=== PATIENT | female | born 1975 | race American Indian/Alaskan Native ===

== ENCOUNTER 2018-06-20 11:36 | Emergency (ER) | payer MEDICAID, MEDICARE ==
[2018-06-20 11:42] VITALS: BP 123/72
--- NOTE | 2018-06-20 12:09 | Emergency Department Report ---
ED Upper Extremity Inj HPI - General Chief Complaint: Extremity Injury, Upper Stated Complaint: RIGHT FINGER INJURY Time Seen by Provider: 06/20/18 11:55 Source: patient Mode of arrival: Ambulatory Limitations: No Limitations - History of Present Illness Initial Comments: Patient is 42 years old female with no significant past medical history. Patient presented to the ER complaining of right middle finger pain and swelling for the last 2 days. Patient denied any fever, injury, nausea or vomiting. MD Complaint: Injury to:: right, hand - Related Data Home Medications Medication Instructions Recorded Confirmed Last Taken Quetiapine Fumarate [Seroquel XR] 800 mg PO QDAY 07/14/14 07/14/14 07/14/14 08: 00 Sertraline [Zoloft] 200 mg PO QDAY 07/14/14 07/14/14 07/14/14 08:00 Previous Rx's Medication Instructions Recorded Last Taken Type Calamine/Zinc 8-8% [Calamine] 118 ml TP TID PRN #1 bottle 07/14/14 Unknown Rx Permethrin [Nix LIQUID] 60 gram TP ONCE #1 tube 07/14/14 Unknown Rx Vit-Fe Fumar-FA [ 1 each PO QDAY #30 tablet 12/21/14 Unknown Rx Vitamin] Allergies Allergy/AdvReac Type Severity Reaction Status Date / Time No Known Allergies Allergy Unverified 07/14/14 21:49 ED Review of Systems ROS: Stated complaint: RIGHT FINGER INJURY Other details as noted in HPI Comment: All other systems reviewed and negative Constitutional: denies: chills, fever Respiratory: denies: cough Gastrointestinal: denies: abdominal pain, nausea ED Past Medical Hx - Past Medical History Previous Medical History?: Yes Hx Psychiatric Treatment: Yes (depression, bipolar, schziophrenia) - Surgical History Past Surgical History?: No - Social History Smoking Status: Current Every Day Smoker Substance Use Type: None - Medications Home Medications: Home Medications Medication Instructions Recorded Confirmed Last Taken Type Calamine/Zinc 8-8% [Calamine] 118 ml TP TID PRN #1 bottle 07/14/14 Unknown Rx Permethrin [Nix LIQUID] 60 gram TP ONCE #1 tube 07/14/14 Unknown Rx Quetiapine Fumarate [Seroquel XR] 800 mg PO QDAY 09/04/14 09/04/14 09/04/14 08: 00 History Sertraline [Zoloft] 200 mg PO QDAY 07/14/14 07/14/14 07/14/14 08:00 History Vit-Fe Fumar-FA [ 1 each PO QDAY #30 tablet 12/21/14 Unknown Rx Vitamin] ED Physical Exam - General Limitations: No Limitations General appearance: alert, in no apparent distress - ENT ENT exam: Present: normal exam - Respiratory Respiratory exam: Present: normal lung sounds bilaterally - Cardiovascular Cardiovascular Exam: Present: regular rate, normal heart sounds - Extremities Exam Extremities exam: Present: other (right middle finger is swelling and tenderness , no clinical evidence of tenosynovitis.) ED Course Vital Signs 06/20/18 11:39 Temperature 98.1 F Pulse Rate 86 Respiratory 16 Rate Blood Pressure 123/72 O2 Sat by Pulse 99 Oximetry Critical care attestation.: If time is entered above; I have spent that time in minutes in the direct care of this critically ill patient, excluding procedure time. ED Disposition Clinical Impression: Finger infection, Allergic conjunctivitis Disposition: DC-01 TO HOME OR SELFCARE Is pt being admited?: No Condition: Stable Instructions: Cellulitis (ED), Conjunctivitis (ED)
== END 2018-06-20 12:18 | disposition home or self-care (01) ==
LOC: ED 11:36
DX: L08.9 Local infection of the skin and subcutaneous tissue, unspecified (principal); H10.10 Acute atopic conjunctivitis, unspecified eye; F17.200 Nicotine dependence, unspecified, uncomplicated
CPT/HCPCS: 99281

== ENCOUNTER 2019-08-08 04:18 | Emergency (ER) | payer MEDICARE ==
[2019-08-08 04:39] VITALS: BP 113/63
[2019-08-08 05:09] LABS: Basophils # (Auto) 0.1 K/mm3 (0.0-0.1); Basophils % (Auto) 1.5 % (0.0-1.8); Eosinophils # (Auto) 0.1 K/mm3 (0.0-0.4); Eosinophils % (Auto) 1.9 % (0.0-4.3); Hematocrit 39.2 % (30.3-42.9); Hemoglobin 12.8 gm/dl (10.1-14.3); Lymphocytes # (Auto) 2.8 K/mm3 (1.2-5.4); Lymphocytes % (Auto) 41.7 % (13.4-35.0); Mean Corpuscular HGB Conc 33 % (30-34); Mean Corpuscular Volume 89 fl (79-97); Monocytes # (Auto) 0.7 K/mm3 (0.0-0.8); Monocytes % (Auto) 9.9 % (0.0-7.3); Platelet Count 431 K/mm3 (140-440); Red Blood Count 4.43 M/mm3 (3.65-5.03)
--- NOTE | 2019-08-08 05:45 | Emergency Department Report ---
<FELI CAMARGO - Last Filed: 08/08/19 06:09> ED Female HPI - General Chief complaint: Vaginal Bleeding Stated complaint: VAG BLEEDING/15WKS Time Seen by Provider: 08/08/19 05:32 Source: patient Mode of arrival: Ambulatory Limitations: No Limitations - History of Present Illness Initial comments: 43-year-old -Maldivian female presents to the emergency room complaining of back pain headache and abdominal pain. Patient states that she is 15 weeks and having vaginal bleeding. Patient states that she went [facility] on 07/31/2019 and was told that she was having a miscarriage. Patient states she was told that she should have everything out within 3 days. Patient states she has nothing coming out. Patient does admit to vaginal bleeding with clots. Patient is 6 para 4 with estimated last menstrual period on 05/10/2019. MD Complaint: vaginal bleeding Onset/Timin -: days(s) Location: suprapubic Severity: severe Severity scale (0 -10): 8 Quality: cramping Consistency: constant Improves with: none Are you Now?: Yes Last Menstrual Period: 05/10/19 EDC: 02/14/20 Associated Symptoms: vaginal bleeding, abdominal pain, nausea/vomiting, head aches - Related Data Sexually active: Yes : 6 Para: 4 Home Medications Medication Instructions Recorded Confirmed Last Taken Quetiapine Fumarate [Seroquel XR] 800 mg PO QDAY 07/14/14 07/14/14 07/14/14 08:00 Sertraline [Zoloft] 200 mg PO QDAY 07/14/14 07/14/14 07/14/14 08:00 Previous Rx's Medication Instructions Recorded Last Taken Type Calamine/Zinc 8-8% [Calamine] 118 ml TP TID PRN #1 bottle 07/14/14 Unknown Rx Permethrin [Nix LIQUID] 60 gram TP ONCE #1 tube 07/14/14 Unknown Rx Vit-Fe Fumar-FA [ 1 each PO QDAY #30 tablet 12/21/14 Unknown Rx Vitamin] Amoxicillin/Potassium Clav 1 each PO BID #14 tablet 06/20/18 Unknown Rx [Augmentin 875-125 Tablet] Olopatadine HCl [Patanol 0.1%] 1 drop OP BID #1 bottle 06/20/18 Unknown Rx Ondansetron [Zofran Odt] 4 mg PO Q8HR PRN #14 tab.rapdis 06/20/18 Unknown Rx traMADol [Ultram 50 MG tab] 50 mg PO Q4HR PRN #14 tablet 06/20/18 Unknown Rx Nitrofurantoin [place]/M-Cryst 100 mg PO Q12HR #14 capsule 08/08/19 Unknown Rx [Macrobid CAP] Allergies Allergy/AdvReac Type Severity Reaction Status Date / Time No Known Allergies Allergy Unverified 07/14/14 21:49 ED Review of Systems Comment: All other systems reviewed and negative ED Past Medical Hx - Past Medical History Previous Medical History?: Yes Hx Psychiatric Treatment: Yes (depression, bipolar, schziophrenia) - Surgical History Past Surgical History?: No - Social History Smoking Status: Former Smoker Substance Use Type: None - Medications Home Medications: Home Medications Medication Instructions Recorded Confirmed Last Taken Type Calamine/Zinc 8-8% [Calamine] 118 ml TP TID PRN #1 bottle 07/14/14 Unknown Rx Permethrin [Nix LIQUID] 60 gram TP ONCE #1 tube 07/14/14 Unknown Rx Quetiapine Fumarate [Seroquel XR] 800 mg PO QDAY 07/14/14 07/14/14 07/14/14 08:00 History Sertraline [Zoloft] 200 mg PO QDAY 07/14/14 07/14/14 07/14/14 08:00 History Vit-Fe Fumar-FA [ 1 each PO QDAY #30 tablet 12/21/14 Unknown Rx Vitamin] Amoxicillin/Potassium Clav 1 each PO BID #14 tablet 06/20/18 Unknown Rx [Augmentin 875-125 Tablet] Olopatadine HCl [Patanol 0.1%] 1 drop OP BID #1 bottle 06/20/18 Unknown Rx Ondansetron [Zofran Odt] 4 mg PO Q8HR PRN #14 tab.rapdis 06/20/18 Unknown Rx traMADol [Ultram 50 MG tab] 50 mg PO Q4HR PRN #14 tablet 06/20/18 Unknown Rx Nitrofurantoin [place]/M-Cryst 100 mg PO Q12HR #14 capsule 08/08/19 Unknown Rx [Macrobid CAP] ED Physical Exam - General Limitations: No Limitations ED Medical Decision Making - Lab Data Result diagrams: 08/08/19 04:57 - Medical Decision Making 43-year-old -Maldivian female presents to the emergency room complaining of back pain headache and abdominal pain. Patient states that she is 15 weeks and having vaginal bleeding. Patient states that she went [facility] on 07/31/2019 and was told that she was having a miscarriage. Patient states she was told that she should have everything out within 3 days. Patient states she has nothing coming out. Patient does admit to vaginal bleeding with clots. Patient is 6 para 4 with estimated last menstrual period on 05/10/2019. Labs HCG 1638, stable H/H. US ob is ordered ED Disposition Clinical Impression: Missed , demise UTI (urinary tract infection) Qualifiers: Urinary tract infection type: site unspecified Hematuria presence: without hematuria Qualified Code(s): N39.0 - Urinary tract infection, site not specified Disposition: TO HOME OR SELFCARE Condition: Stable Instructions: Spontaneous Miscarriage (ED) Additional Instructions: Follow-up with a [facility] doctor tomorrow morning () or if symptoms worsen and continue return to emergency room as soon as possible. Prescriptions: Nitrofurantoin [place]/M-Cryst [Macrobid CAP] 100 mg PO Q12HR #14 capsule Referrals: PRIMARY CAREMD [Primary Care Provider] - 3-5 Days JC MILAN MD [Staff Physician] - 08/09/19 Forms: Work/School Release Form(ED) <DAMASO HERNANDEZ - Last Filed: 08/08/19 11:00> ED Review of Systems ROS: Stated complaint: VAG BLEEDING/15WKS Other details as noted in HPI ED Physical Exam - General General appearance: alert, in no apparent distress - Neck Neck exam: Present: normal inspection, full ROM. Absent: tenderness, meningismus, lymphadenopathy - Respiratory Respiratory exam: Present: normal lung sounds bilaterally. Absent: respiratory distress, wheezes, rales, rhonchi, stridor, chest wall tenderness, accessory muscle use, decreased breath sounds, prolonged expiratory - Cardiovascular Cardiovascular Exam: Present: regular rate, normal rhythm, normal heart sounds. Absent: irregular rhythm, systolic murmur, diastolic murmur, rubs, gallop - GI/Abdominal GI/Abdominal exam: Present: soft, normal bowel sounds. Absent: distended, tenderness - Extremities Exam Extremities exam: Present: normal inspection, full ROM - Back Exam Back exam: Present: normal inspection, full ROM. Absent: tenderness, CVA tenderness (R), CVA tenderness (L), muscle spasm, paraspinal tenderness, vertebral tenderness, rash noted - Neurological Exam Neurological exam: Present: alert, oriented X3, normal gait - Psychiatric Psychiatric exam: Present: normal affect, normal mood - Skin Skin exam: Present: warm, dry, intact, normal color. Absent: rash ED Course Vital Signs 08/08/19 04:32 Temperature 98.2 F Pulse Rate 74 Respiratory 18 Rate Blood Pressure 113/63 O2 Sat by Pulse 100 Oximetry - Reevaluation(s) Reevaluation #1: 08/08/19 09:35 Patient is speaking in full sentences with no signs of distress noted. - Consultations Consultation #1: 08/08/19 08:55 Patient has been consulted with [facility] about patient history, physical exam, and labs/US report and stated patient can be discharge with follow-up tomorrow. ED Medical Decision Making - Lab Data Result diagrams: 08/08/19 04:57 - Medical Decision Making Patient was originally seen by NNAMDI Farrar and was signed out to me for a pending ultrasound report. I reexamined the patient due to no physical assessment documented in and patient does not have any abdominal tenderness. Patient was consulted with Dr. Jc Milan (STUDY DIRECTOR) ultrasound report due to demise and stated patient can be discharged with follow-up on Friday. Patient states she does have slight vaginal bleeding and goes about 1 pad an hour. Denies any other symptoms. Patient was instructed to Follow-up with a [facility] doctor Friday morning or if symptoms worsen and continue return to emergency room as soon as possible. At time of discharge, the patient does not seem toxic or ill in appearance. No acute signs of distress noted. Patient agrees to discharge treatment plan of care. No further questions noted by the patient. Critical care attestation.: If time is entered above; I have spent that time in minutes in the direct care of this critically ill patient, excluding procedure time. ED Disposition Is pt being admited?: No Does the pt Need Aspirin: No
[2019-08-08] MEDS ORDERED: ONDANSETRON 4 MG/2 ML INJ IM ONE (06:07)
[2019-08-08] MEDS ORDERED: ACETAMINOPHEN 500 MG TAB PO ONE (06:12)
[2019-08-08] MEDS ORDERED: METOCLOPRAMIDE 10 MG/2 ML INJ IV ONE (08:22)
[2019-08-08] MEDS ORDERED: SODIUM CHLORIDE 0.9% 1000 ML 1,000 ML IV ONE (08:22)
--- NOTE | 2019-08-08 08:25 | Ultrasound Report ---
Transabdominal and transvaginal OB pelvic ultrasound INDICATION / CLINICAL INFORMATION: Vaginal bleeding. Abdominal and back pain. COMPARISON: None available. FINDINGS: TRANSABDOMINAL: There is a misshapened intrauterine gestational sac with a pole and yolk sac. T here is questionable cardiac activity. TRANSVAGINAL: There is an intrauterine gestational sac with a pole measuring 7 weeks 3 days. No cardiac activity is seen. There is no evidence of implantation hemorrhage. There is a 1.4 cm c orpus luteal cyst in the left ovary. There is no evidence of extraovarian mass or free fluid. IMPRESSION: Early demise/missed . Signer Name: Dayron Morgan MD Signed: 08/08/2019 8:21 AM Workstation Name: [id number]
[2019-08-08 10:52] LABS: Bilirubin,Urine NEG (Negative); Blood,Urine LG (Negative); Color,Urine Red (Yellow); Mucus,Urine FEW /HPF; Urobilinogen,Urine < 2.0 mg/dL (<2.0)
[2019-08-08 10:55] LABS: RBC,Urine > 182.0 /HPF (0.0-6.0)
== END 2019-08-08 11:22 | disposition home or self-care (01) ==
LOC: ED 04:18
DX: O20.0 Threatened abortion (principal); O23.42 Unspecified infection of urinary tract in pregnancy, second trimester; O99.342 Other mental disorders complicating pregnancy, second trimester; F31.9 Bipolar disorder, unspecified; F20.9 Schizophrenia, unspecified; Z87.891 Personal history of nicotine dependence; Z3A.15 15 weeks gestation of pregnancy
CPT/HCPCS: 36415; 76801; 76817; 81001; 84702; 85025; 86900; 86901; 87086; 96361; 96372; 96374; 99284; J2405; J2765; J7030

== ENCOUNTER 2019-12-07 11:18 | Emergency (ER) | payer MEDICARE ==
--- NOTE | 2019-12-07 15:22 | Emergency Department Report ---
ED General Adult HPI - General Chief complaint: Urogenital-Female Stated complaint: VAGINAL DISCHARGE/PAIN Time Seen by Provider: 12/07/19 14:50 Source: patient Mode of arrival: Ambulatory Limitations: No Limitations - History of Present Illness Initial comments: Patient presents to the emergency department with a chief complaint of vaginal discharge and STD exposure. Patient states that she needs an inpatient rehabilitation facility was sent here today for evaluation and treatment. Patient does endorse having a recent unprotected intercourse -: unknown Severity scale (0 -10): 0 Consistency: constant Improves with: none Worsens with: none Associated Symptoms: denies other symptoms Treatments Prior to Arrival: none - Related Data Home Medications Medication Instructions Recorded Confirmed Last Taken Quetiapine Fumarate [Seroquel XR] 800 mg PO QDAY 07/14/14 07/14/14 07/14/14 08:00 Sertraline [Zoloft] 200 mg PO QDAY 07/14/14 07/14/14 07/14/14 08:00 Previous Rx's Medication Instructions Recorded Last Taken Type Calamine/Zinc 8-8% [Calamine] 118 ml TP TID PRN #1 bottle 07/14/14 Unknown Rx Permethrin [Nix LIQUID] 60 gram TP ONCE #1 tube 07/14/14 Unknown Rx Vit-Fe Fumar-FA [ 1 each PO QDAY #30 tablet 12/21/14 Unknown Rx Vitamin] Amoxicillin/Potassium Clav 1 each PO BID #14 tablet 06/20/18 Unknown Rx [Augmentin 875-125 Tablet] Olopatadine HCl [Patanol 0.1%] 1 drop OP BID #1 bottle 06/20/18 Unknown Rx Ondansetron [Zofran Odt] 4 mg PO Q8HR PRN #14 tab.rapdis 06/20/18 Unknown Rx traMADoL [Ultram 50 MG tab] 50 mg PO Q4HR PRN #14 tablet 06/20/18 Unknown Rx Nitrofurantoin [place]/M-Cryst 100 mg PO Q12HR #14 capsule 08/08/19 Unknown Rx [Macrobid CAP] Allergies Allergy/AdvReac Type Severity Reaction Status Date / Time No Known Allergies Allergy Unverified 07/14/14 21:49 ED Review of Systems ROS: Stated complaint: VAGINAL DISCHARGE/PAIN Other details as noted in HPI Comment: All other systems reviewed and negative Constitutional: denies: chills, fever Eyes: denies: eye pain, eye discharge, vision change ENT: denies: ear pain, throat pain Respiratory: denies: cough, shortness of breath, wheezing Cardiovascular: denies: chest pain, palpitations Endocrine: no symptoms reported Gastrointestinal: denies: abdominal pain, nausea, diarrhea Genitourinary: denies: urgency, dysuria, discharge Musculoskeletal: denies: back pain, joint swelling, arthralgia Skin: denies: rash, lesions Neurological: denies: headache, weakness, paresthesias Psychiatric: denies: anxiety, depression Hematological/Lymphatic: denies: easy bleeding, easy bruising ED Past Medical Hx - Past Medical History Hx Psychiatric Treatment: Yes (depression, bipolar, schziophrenia) - Surgical History Past Surgical History?: No - Social History Smoking Status: Current Every Day Smoker Substance Use Type: None - Medications Home Medications: Home Medications Medication Instructions Recorded Confirmed Last Taken Type Calamine/Zinc 8-8% [Calamine] 118 ml TP TID PRN #1 bottle 07/14/14 Unknown Rx Permethrin [Nix LIQUID] 60 gram TP ONCE #1 tube 07/14/14 Unknown Rx Quetiapine Fumarate [Seroquel XR] 800 mg PO QDAY 07/14/14 07/14/14 07/14/14 08:00 History Sertraline [Zoloft] 200 mg PO QDAY 07/14/14 07/14/14 07/14/14 08:00 History Vit-Fe Fumar-FA [ 1 each PO QDAY #30 tablet 12/21/14 Unknown Rx Vitamin] Amoxicillin/Potassium Clav 1 each PO BID #14 tablet 06/20/18 Unknown Rx [Augmentin 875-125 Tablet] Olopatadine HCl [Patanol 0.1%] 1 drop OP BID #1 bottle 06/20/18 Unknown Rx Ondansetron [Zofran Odt] 4 mg PO Q8HR PRN #14 tab.rapdis 06/20/18 Unknown Rx traMADoL [Ultram 50 MG tab] 50 mg PO Q4HR PRN #14 tablet 06/20/18 Unknown Rx Nitrofurantoin [place]/M-Cryst 100 mg PO Q12HR #14 capsule 08/08/19 Unknown Rx [Macrobid CAP] ED Physical Exam - General Limitations: No Limitations General appearance: alert, in no apparent distress - Head Head exam: Present: atraumatic, normocephalic - Eye Eye exam: Present: normal appearance, PERRL, EOMI - ENT ENT exam: Present: mucous membranes moist - Neck Neck exam: Present: normal inspection - Respiratory Respiratory exam: Present: normal lung sounds bilaterally. Absent: respiratory distress - Cardiovascular Cardiovascular Exam: Present: regular rate, normal rhythm. Absent: systolic murmur, diastolic murmur, rubs, gallop - GI/Abdominal GI/Abdominal exam: Present: soft, normal bowel sounds. Absent: distended, tenderness - Rectal Rectal exam: Present: deferred - External exam: Present: other (deferred) Speculum exam: Present: other (deferred) Bi-manual exam: Present: other (deferred) - Extremities Exam Extremities exam: Present: normal inspection - Back Exam Back exam: Present: normal inspection - Neurological Exam Neurological exam: Present: alert, oriented X3 - Psychiatric Psychiatric exam: Present: normal affect, normal mood - Skin Skin exam: Present: warm, dry, intact, normal color. Absent: rash ED Medical Decision Making - Medical Decision Making She received prophylactic treatment for STDs This was done in order for the patient to be let back into her rehabilitation facility Critical care attestation.: If time is entered above; I have spent that time in minutes in the direct care of this critically ill patient, excluding procedure time. ED Disposition Clinical Impression: STD exposure Disposition: DC-01 TO HOME OR SELFCARE Is pt being admited?: No Does the pt Need Aspirin: No Condition: Stable Instructions: Sexually Transmitted Diseases (ED) Additional Instructions: return if worse Referrals: PRIMARY CARE,MD [Primary Care Provider] - 3-5 Days Time of Disposition: 16:03
[2019-12-07] MEDS ORDERED: metroNIDAZOLE 500 MG TAB PO ONE (15:30)
[2019-12-07] MEDS ORDERED: LIDOCAINE-MPF (1%) 10 MG/1 ML VIAL 5 ML INFILTRATI ONE (15:30)
[2019-12-07] MEDS ORDERED: AZITHROMYCIN 250 MG TAB PO ONE (15:30)
[2019-12-07] MEDS ORDERED: ONDANSETRON 4 MG ODT TAB PO ONE (15:31)
[2019-12-07 16:31] VITALS: BP 142/68
== END 2019-12-07 16:15 | disposition home or self-care (01) ==
LOC: ED 11:18
DX: Z20.2 Contact with and (suspected) exposure to infections with a predominantly sexual mode of transmission (principal); F32.9 Major depressive disorder, single episode, unspecified; F25.0 Schizoaffective disorder, bipolar type; F17.200 Nicotine dependence, unspecified, uncomplicated; Z79.899 Other long term (current) drug therapy
CPT/HCPCS: 96372; 99283; J0696; Q0162

== ENCOUNTER 2020-09-02 11:22 | Emergency (ER) | payer MEDICARE, OTHER ==
[2020-09-02 11:50] VITALS: BP 106/60
--- NOTE | 2020-09-02 15:27 | Emergency Department Report ---
ED Female HPI - General Chief complaint: Urogenital-Female Stated complaint: STD CHECK Source: patient Mode of arrival: Ambulatory Limitations: No Limitations - History of Present Illness Initial comments: 44-year-old female states that her boyfriend notified her that he was treated for gonorrhea and chlamydia. She is complaining of a white vaginal discharge and vaginal irritation. She denies abdominal pain no urinary symptoms no nausea no vomiting no fever chills MD Complaint: vaginal discharge, possible STD -: days(s) (2) Improves with: none Worsens with: none Associated Symptoms: vaginal discharge. denies: vaginal bleeding, abdominal pain, nausea/vomiting, fever/chills, headaches, loss of appetite, dysuria, hematuria, rash, seizure, shortness of breath, syncope, weakness - Related Data Home Medications Medication Instructions Recorded Confirmed Last Taken Quetiapine Fumarate [Seroquel XR] 800 mg PO QDAY 07/14/14 07/14/14 07/14/14 08:00 Sertraline [Zoloft] 200 mg PO QDAY 07/14/14 07/14/14 07/14/14 08:00 Previous Rx's Medication Instructions Recorded Last Taken Type Calamine/Zinc 8-8% [Calamine] 118 ml TP TID PRN #1 bottle 07/14/14 Unknown Rx Permethrin [Nix LIQUID] 60 gram TP ONCE #1 tube 07/14/14 Unknown Rx Vit-Fe Fumar-FA [ 1 each PO QDAY #30 tablet 12/21/14 Unknown Rx Vitamin] Amoxicillin/Potassium Clav 1 each PO BID #14 tablet 06/20/18 Unknown Rx [Augmentin 875-125 Tablet] Olopatadine HCl [Patanol 0.1%] 1 drop OP BID #1 bottle 06/20/18 Unknown Rx Ondansetron [Zofran Odt] 4 mg PO Q8HR PRN #14 tab.rapdis 06/20/18 Unknown Rx traMADoL [Ultram 50 MG tab] 50 mg PO Q4HR PRN #14 tablet 06/20/18 Unknown Rx Nitrofurantoin [place]/M-Cryst 100 mg PO Q12HR #14 capsule 08/08/19 Unknown Rx [Macrobid CAP] Cyclobenzaprine [Flexeril] 10 mg PO Q8H PRN #21 tablet 04/20/20 Unknown Rx Ibuprofen [Motrin] 800 mg PO Q8HR PRN #24 tablet 04/20/20 Unknown Rx Allergies Allergy/AdvReac Type Severity Reaction Status Date / Time No Known Allergies Allergy Verified 04/20/20 00:03 ED Review of Systems ROS: Stated complaint: STD CHECK Other details as noted in HPI ED Past Medical Hx - Past Medical History Previous Medical History?: Yes Hx Psychiatric Treatment: Yes (depression, bipolar, schziophrenia) - Surgical History Past Surgical History?: No - Social History Smoking Status: Current Every Day Smoker Substance Use Type: Alcohol, Marijuana - Medications Home Medications: Home Medications Medication Instructions Recorded Confirmed Last Taken Type Calamine/Zinc 8-8% [Calamine] 118 ml TP TID PRN #1 bottle 07/14/14 Unknown Rx Permethrin [Nix LIQUID] 60 gram TP ONCE #1 tube 07/14/14 Unknown Rx Quetiapine Fumarate [Seroquel XR] 800 mg PO QDAY 07/14/14 07/14/14 07/14/14 08:00 History Sertraline [Zoloft] 200 mg PO QDAY 07/14/14 07/14/14 07/14/14 08:00 History Vit-Fe Fumar-FA [ 1 each PO QDAY #30 tablet 12/21/14 Unknown Rx Vitamin] Amoxicillin/Potassium Clav 1 each PO BID #14 tablet 06/20/18 Unknown Rx [Augmentin 875-125 Tablet] Olopatadine HCl [Patanol 0.1%] 1 drop OP BID #1 bottle 06/20/18 Unknown Rx Ondansetron [Zofran Odt] 4 mg PO Q8HR PRN #14 tab.rapdis 06/20/18 Unknown Rx traMADoL [Ultram 50 MG tab] 50 mg PO Q4HR PRN #14 tablet 06/20/18 Unknown Rx Nitrofurantoin [place]/M-Cryst 100 mg PO Q12HR #14 capsule 08/08/19 Unknown Rx [Macrobid CAP] Cyclobenzaprine [Flexeril] 10 mg PO Q8H PRN #21 tablet 04/20/20 Unknown Rx Ibuprofen [Motrin] 800 mg PO Q8HR PRN #24 tablet 04/20/20 Unknown Rx ED Physical Exam - General Limitations: No Limitations General appearance: alert, in no apparent distress - Head Head exam: Present: atraumatic - Eye Eye exam: Present: normal appearance. Absent: scleral icterus - ENT ENT exam: Present: normal exam - Neck Neck exam: Present: normal inspection - Respiratory Respiratory exam: Present: normal lung sounds bilaterally - Cardiovascular Cardiovascular Exam: Present: normal heart sounds. Absent: regular rate - GI/Abdominal GI/Abdominal exam: Present: soft, normal bowel sounds. Absent: distended, tenderness, guarding, rebound - External exam: Present: normal external exam Speculum exam: Present: normal speculum exam, vaginal discharge (scant white vaginal discharge) Bi-manual exam: Present: normal bi-manual exam. Absent: cervical motion tendernes, adnexal tenderness - Extremities Exam Extremities exam: Present: normal inspection - Back Exam Back exam: Present: normal inspection, full ROM. Absent: CVA tenderness (R), CVA tenderness (L) - Neurological Exam Neurological exam: Present: alert, oriented X3 - Psychiatric Psychiatric exam: Present: normal affect - Skin Skin exam: Present: warm, dry, intact, normal color ED Course Vital Signs 09/02/20 11:49 Temperature 97.9 F Pulse Rate 77 Respiratory 18 Rate Blood Pressure 106/60 O2 Sat by Pulse 98 Oximetry ED Medical Decision Making - Medical Decision Making Patient presents to this emergency room with complaint that she has been exposed to STD with her boyfriend being treated for gonorrhea and chlamydia pelvic exam was normal no cervical motion tenderness just a white discharge urinalysis was negative test. wet mount no clue cells no trichomoniasis no yeast. I did treat patient with Rocephin and azithromycin given instructions on safe sex Critical care attestation.: If time is entered above; I have spent that time in minutes in the direct care of this critically ill patient, excluding procedure time. ED Disposition Clinical Impression: Exposure to STD Disposition: DC-01 TO HOME OR SELFCARE Is pt being admited?: No Does the pt Need Aspirin: No Condition: Stable Instructions: Sexually Transmitted Diseases (ED), Safe Sex (ED) Additional Instructions: Use condoms all the time every time. Today you were treated with Rocephin which treats gonorrhea azithromycin which treats chlamydia. Urine urine had no signs of infection. And your test was negative. Please follow-up with your primary care doctor in 2 to 3 days Referrals: PRIMARY CARE, [Primary Care Provider] - 3-5 Days CAYETANO NESS MD [Staff Physician] - 3-5 Days Time of Disposition: 18:19
[2020-09-02] MEDS ORDERED: LIDOCAINE-MPF (1%) 10 MG/1 ML VIAL 5 ML INFILTRATI ONE (16:58)
[2020-09-02] MEDS ORDERED: AZITHROMYCIN 1 GM ORAL PWDR PACKET PO ONE (16:59)
[2020-09-02 17:44] LABS: HCG Qualitative,Urine Negative (Negative)
[2020-09-02 17:57] LABS: Bilirubin,Urine NEG (Negative); Blood,Urine NEG (Negative); Color,Urine Yellow (Yellow); Mucus,Urine 2+ /HPF; Protein,Urine <15 mg/dL mg/dL (Negative)
== END 2020-09-02 18:42 | disposition home or self-care (01) ==
LOC: ED 11:22
DX: Z20.2 Contact with and (suspected) exposure to infections with a predominantly sexual mode of transmission (principal); F17.200 Nicotine dependence, unspecified, uncomplicated; F12.10 Cannabis abuse, uncomplicated; F20.89 Other schizophrenia; F31.9 Bipolar disorder, unspecified; Z79.899 Other long term (current) drug therapy
CPT/HCPCS: 81001; 81025; 87210; 96372; 99284; J0696